=== PATIENT | female | born 1990 | race African-American/Black ===

== ENCOUNTER 2017-03-06 19:11 | Emergency (ER) | payer MEDICAID ==
[~2017-03-06] VITALS: Ht 157.5 cm; Wt 68.0 kg
[2017-03-06 23:07] VITALS: BP 101/65
== END 2017-03-07 00:20 | disposition home or self-care (01) ==
LOC: ER 23:15
DX: Z04.41 Encounter for examination and observation following alleged adult rape (principal); F17.210 Nicotine dependence, cigarettes, uncomplicated
CPT/HCPCS: 99283; Z7610